=== PATIENT | male | born 1945 | race Caucasian/White ===

== ENCOUNTER → 2019-01-21 | Outpatient (CLI) | payer MEDICARE ==
--- NOTE | 2019-01-21 12:35 | MR ---
EXAMINATION TYPE: MR knee LT wo con DATE OF EXAM: 01/21/2019 COMPARISON: Plain films 12/31/2018 HISTORY: Left knee pain TECHNIQUE: Multiplanar, multisequence imaging of the left knee is performed without IV contrast. FINDINGS: MEDIAL MENISCUS: Is oblique signal within the posterior horn medial meniscus communicating with the i nferior articular surface compatible with an oblique tear. Anterior horn medial meniscus appears inta ct. There is mild increased signal adjacent to the posterior horn medial meniscus along the tibial pl ateau compatible lesion. LATERAL MENISCUS: Anterior and posterior horns are intact without tear. CRUCIATE LIGAMENTS: The anterior and posterior cruciate ligaments are intact and unremarkable. COLLATERAL LIGAMENTS: The medial collateral ligament and lateral collateral ligament complex are inta ct. Medial collateral ligament has some fluid surrounding with normal low signal within. Mild strain could be considered. EXTENSOR MECHANISM: Visualized quadriceps and patellar tendons are intact. EFFUSION: Small joint fluid is present POPLITEAL CYST: Very tiny 0.6 cm popliteal cyst may be present. TRICOMPARTMENT SPACES: There is narrowing of the medial compartment joint space. Lateral compartment joint space has milder narrowing. Patellofemoral space is normal. CARTILAGE: There is thinning of the medial compartment articular cartilage. Mild thinning of the demario cular cartilage along the lateral tibial plateau is present. Articular cartilage otherwise appears in tact BONE MARROW SIGNAL: With the medial tibial plateau, no abnormal signal within the osseous structures is evident. Small contusion of the corner of the medial tibial plateau adjacent to the posterior horn medial meniscus is evident. Some displacement of the meniscus medially may be present. OTHER: No additional significant abnormality is appreciated. IMPRESSION: 1. Oblique tear posterior horn medial meniscus. 2. There may be some subluxation of the posterior horn medial residual meniscus out of the joint spac e. 3. Contusion medial posterior tibial plateau. 4. Osteoarthritic degenerative change medial compartment. Milder changes are within the lateral felicia rtment. 5. Tiny popliteal cyst. 6. Minimal joint effusion. 7. Strain of the medial collateral ligament.
== END | disposition home or self-care (01) ==
LOC: RADMRIMAIN 10:15
PROVIDERS: ATTEND Orthopaedic Surgery
DX: S83.242A Other tear of medial meniscus, current injury, left knee, initial encounter (principal); M17.12 Unilateral primary osteoarthritis, left knee; M71.22 Synovial cyst of popliteal space [Baker], left knee; S76.812A Strain of other specified muscles, fascia and tendons at thigh level, left thigh, initial encounter

== ENCOUNTER 2023-07-24 19:49 | Inpatient (IN) | payer MEDICARE ==
[2023-07-24] MEDS ORDERED: SODIUM CHLORIDE 0.9% 500 ML 500 ML IV ONE ×2 (20:09→21:43)
[2023-07-24 20:13] VITALS: RESP 18
--- NOTE | 2023-07-24 20:16 | ED ---
General Adult HPI - General Chief complaint: Fall Stated complaint: Fall Time Seen by Provider: 07/24/23 20:04 Source: patient, EMS, RN notes reviewed, old records reviewed Mode of arrival: EMS Limitations: altered mental status - History of Present Illness Initial comments: Patient brought in by EMS after found down in his house. Per EMS family was at tempting to reach him since 2:00 yesterday and was unable. He was found on the floor next to his nightstand. Patient states that he believes it is Saturday. He recalls getting up to go to the bathroom and returning back to the bed and got dizzy and fell. He is complaining of neck tightness no other discomfort or pain. Denies any medical history. -: days(s) (1) Location: head, neck Radiation: non-radiation Quality: other ("tight" neck) Consistency: constant Improves with: immobilization Worsens with: movement Associated Symptoms: other (confusion) Treatments Prior to Arrival: none - Related Data Previous Rx's Medication Instructions Recorded Aspirin 81 mg PO DAILY 30 Days #30 tab 07/26/23 Allergies Allergy/AdvReac Type Severity Reaction Status Date / Time No Known Allergies Allergy Verified 07/25/23 07:59 Review of Systems ROS Statement: Those systems with pertinent positive or pertinent negative responses have been documented in the HPI. ROS Other: All systems not noted in ROS Statement are negative. Past Medical History Additional Past Medical History / Comment(s): cataracts History of Any Multi-Drug Resistant Organisms: None Reported Additional Past Surgical History / Comment(s): caracts Past Psychological History: No Psychological Hx Reported Smoking Status: Current every day smoker Past Alcohol Use History: Occasional Past Drug Use History: Marijuana General Exam Limitations: altered mental status General appearance: alert, in no apparent distress Head exam: Present: atraumatic, normocephalic, other (petechie to face diffuse) Eye exam: Present: normal appearance, PERRL, EOMI. Absent: scleral icterus, conjunctival injection, nystagmus, periorbital swelling, periorbital tenderness ENT exam: Present: mucous membranes dry Neck exam: Present: tenderness. Absent: meningismus, lymphadenopathy, thyromegaly Respiratory exam: Present: normal lung sounds bilaterally. Absent: respiratory distress, accessory muscle use Cardiovascular Exam: Present: regular rate GI/Abdominal exam: Present: soft. Absent: distended, tenderness, guarding, rebound, rigid Extremities exam: Present: normal inspection, full ROM, normal capillary refill. Absent: tenderness, pedal edema, joint swelling, calf tenderness Back exam: Present: normal inspection, full ROM. Absent: tenderness, CVA tenderness (R), CVA tenderness (L), paraspinal tenderness, vertebral tenderness, rash noted Neurological exam: Present: alert (alert to person only ), CN II-XII intact Psychiatric exam: Present: normal affect, normal mood Skin exam: Present: warm, dry, normal color, petechiae (diffuse face), abrasion (left shoulder, right forearm). Absent: cyanosis, diaphoretic, pallor Course Vital Signs 07/24/23 07/24/23 07/25/23 19:54 21:51 00:44 Temperature 100.9 F H 98.9 F Pulse Rate 80 78 75 Pulse Rate [ Pulse Oximetery ] Respiratory 18 18 18 Rate Blood Pressure 144/77 130/57 119/65 Blood Pressure [Right Arm] O2 Sat by Pulse 95 96 95 Oximetry 07/25/23 07/25/23 07/25/23 06:19 09:38 17:44 Temperature 98.1 F 98.1 F Pulse Rate 70 71 Pulse Rate [ 65 Pulse Oximetery ] Respiratory 18 18 18 Rate Blood Pressure 143/76 134/63 Blood Pressure 147/67 [Right Arm] O2 Sat by Pulse 97 96 97 Oximetry 07/25/23 17:45 Temperature Pulse Rate Pulse Rate [ 65 Pulse Oximetery ] Respiratory 18 Rate Blood Pressure Blood Pressure [Right Arm] O2 Sat by Pulse Oximetry EKG Findings - EKG Results: EKG: sinus rhythm (EKG shows sinus rhythm with a ventricular rate of 80, SC interval 0.171, QRS 0.154, QTC 0.441, right bundle branch block, no old EKG to compare.) Medical Decision Making - Medical Decision Making Was pt. sent in by a medical professional or institution (, PA, BOILER SHOP SUPERVISOR, urgent care, hospital, or senior care...) When possible be specific @ -[No] Did you speak to anyone other than the patient for history (EMS, parent, family, police, friend...)? What history was obtained from this source @ -[No] Did you review nursing and triage notes (agree or disagree)? Why? @ -[I reviewed and agree with nursing and triage notes] Were old charts reviewed (outside hosp., previous admission, EMS record, old EKG, old radiological studies, urgent care reports/EKG's, senior care records)? Report findings @ -[No old charts were reviewed] Differential Diagnosis (chest pain, altered mental status, abdominal pain women, abdominal pain men, vaginal bleeding, weakness, fever, dyspnea, syncope, headache, dizziness, GI bleed, back pain, seizure, CVA, palpatations, mental health, musculoskeletal)? @ -Differential Altered Mental Status: Hypoglycemia, DKA, hypercapnia, ETOH, overdose, CO poisoning, trauma, myxedema coma, HTN encephalopathy, infection, encephalitis, psychosis, intercranial hemorrhage, hepatic encephalopathy, meningitis, CVA, this is not meant to be an all-inclusive list EKG interpreted by me (3pts min.). @ -yes EKG shows sinus rhythm with a ventricular rate of 80, SC interval 0.171, QRS 0.154, QTC 0.441, right bundle branch block, no old EKG to compare. X-rays interpreted by me (1pt min.). @ -Yes chest x-ray interpreted by me shows no evidence of consolidation, trachea midline, heart silhouette within normal size. CT interpreted by me (1pt min.). @ -Yes CT brain and C-spine interpreted by me shows no evidence of intracranial bleed or mass or midline shift. C-spine shows no evidence of acute fracture. U/S interpreted by me (1pt. min.). @ -[None done] What testing was considered but not performed or refused? (CT, X-rays, U/S, labs)? Why? @ -[None] What meds were considered but not given or refused? Why? @ -[None] Did you discuss the management of the patient with other professionals (professionals i.e. , PA, BOILER SHOP SUPERVISOR, lab, RT, psych nurse, director social, community health outreach worker, teacher, probation officer, medical case worker)? Give summary @ -[No] Was smoking cessation discussed for >3mins.? @ -[No] Was critical care preformed (if so, how long)? @ -[No] Were there social determinants of health that impacted care today? How? (Homelessness, low income, unemployed, alcoholism, drug addiction, transportation, low edu. Level, literacy, decrease access to med. care, skilled nursing, rehab)? @ -[No] Was there de-escalation of care discussed even if they declined (Discuss DNR or withdrawal of care, Hospice)? DNR status @ -[No] What co-morbidities impacted this encounter? (DM, HTN, Smoking, COPD, CAD, Cancer, CVA, ARF, Chemo, Hep., AIDS, mental health diagnosis, sleep apnea, morbid obesity)? @ -[None] Was patient admitted / discharged? Hospital course, mention meds given and route, prescriptions, significant lab abnormalities, going to OR and other pertinent info. @ -Admitted Patient brought in by EMS after found down in his house. Per EMS family was attempting to reach him since 2:00 yesterday and was unable. He was found on the floor next to his nightstand. Patient states that he believes it is Saturday. He recalls getting up to go to the bathroom and returning back to the bed and got dizzy and falling. He is complaining of neck tightness no other discomfort or pain. Denies any medical history. Radiologist impression CT head no acute intracranial CT abnormality. Mild generalized brain atrophy and chronic microvascular ischemic changes. No evidence of cervical spine fracture or traumatic malalignment. Multilevel cervical spondylosis with mild to moderate canal and neural foraminal stenosis C4 - C5, C6 - C7 Radiologist impression chest x-ray mild cardiomegaly. No acute cardiopulmonary abnormality. Labs show mild leukocytosis, lactic acid of 2.7, CK of 1245, elevated troponin 0.178 coronavirus and urinalysis pending, patient will be placed in observation for altered mental status case signed out to Dr. Patel who will review urinalysis and coronavirus results. Undiagnosed new problem with uncertain prognosis? @ -[No] Drug Therapy requiring intensive monitoring for toxicity (Heparin, Nitro, Insulin, Cardizem)? @ -[No] Were any procedures done? @ -[No] Diagnosis/symptom? @ -Altered mental status, rhabdomyolosis, fall Acute, or Chronic, or Acute on Chronic? @ -acute Uncomplicated (without systemic symptoms) or Complicated (systemic symptoms)? @ -complicated Side effects of treatment? @ -[No] Exacerbation, Progression, or Severe Exacerbation? @ -[No] Poses a threat to life or bodily function? How? (Chest pain, [place], [place], pneumonia, PE, COPD, DKA, ARF, appy, cholecystitis, CVA, Diverticulitis, Homicidal, Suicidal, threat to staff... and all critical care pts) @ -yes rhabdomyolysis could result in kidney failure, electrolyte abnormalities or DIC - Lab Data Result diagrams: 07/26/23 07:44 07/26/23 07:44 Lab Results 07/24/23 07/24/23 07/24/23 Range/Units 20:23 20:23 20:23 WBC 13.5 H (3.8-10.6) k/uL RBC 4.53 (4.30-5.90) m/uL Hgb 15.1 (13.0-17.5) gm/dL Hct 45.2 (39.0-53.0) % MCV 99.8 (80.0-100.0) fL MCH 33.4 (25.0-35.0) pg MCHC 33.4 (31.0-37.0) g/dL RDW 13.5 (11.5-15.5) % Plt Count 166 (150-450) k/uL MPV 8.3 Neutrophils % 91 % Lymphocytes % 5 % Monocytes % 3 % Eosinophils % 0 % Basophils % 1 % Neutrophils # 12.2 H (1.3-7.7) k/uL Lymphocytes # 0.7 L (1.0-4.8) k/uL Monocytes # 0.5 (0-1.0) k/uL Eosinophils # 0.0 (0-0.7) k/uL Basophils # 0.1 (0-0.2) k/uL PT 11.1 (10.0-12.5) sec INR 1.0 (<1.2) APTT 21.7 L (22.0-30.0) sec Sodium (137-145) mmol/L Potassium (3.5-5.1) mmol/L Chloride (98-107) mmol/L Carbon Dioxide (22-30) mmol/L Anion Gap mmol/L BUN (9-20) mg/dL Creatinine (0.66-1.25) mg/dL Est GFR (CKD-EPI)AfAm (>60 ml/min/1.73 sqM) Est GFR (CKD-EPI)NonAf (>60 ml/min/1.73 sqM) Glucose (74-99) mg/dL POC Glucose (mg/dL) (70-110) mg/dL POC Glu Travel Guide ID Lactic Ac Sepsis Rflx Plasma Lactic Acid Damaso (0.7-2.0) mmol/L Calcium (8.4-10.2) mg/dL Magnesium (1.6-2.3) mg/dL Total Bilirubin (0.2-1.3) mg/dL AST (17-59) U/L ALT (4-49) U/L Alkaline Phosphatase (38-126) U/L Creatine Kinase (55-170) U/L CK-MB (CK-2) (0.0-3.4) ng/mL Troponin I (0.000-0.034) ng/mL Total Protein (6.3-8.2) g/dL Albumin (3.5-5.0) g/dL Urine Color Yellow Urine Appearance Cloudy (Clear) Urine pH 5.0 (5.0-8.0) Ur Specific [place] 1.015 (1.001-1.035) Urine Protein Trace H (Negative) Urine Glucose (UA) Negative (Negative) Urine Ketones 3+ (Negative) Urine Blood Moderate (Negative) Urine Nitrite Negative (Negative) Urine Bilirubin Negative (Negative) Urine Urobilinogen <2.0 (<2.0) mg/dL Ur Leukocyte Esterase Negative (Negative) Urine RBC 3 (0-5) /hpf Amorphous Sediment Rare H (None) /hpf Hyaline Casts 5 H (0-2) /lpf Urine Opiates Screen Not Detected (NotDetected) Ur Oxycodone Screen Not Detected (NotDetected) Urine Methadone Screen Not Detected (NotDetected) Ur Propoxyphene Screen Not Detected (NotDetected) Ur Barbiturates Screen Not Detected (NotDetected) U Tricyclic Antidepress Not Detected (NotDetected) Ur Phencyclidine Scrn Not Detected (NotDetected) Ur Amphetamines Screen Not Detected (NotDetected) U Methamphetamines Scrn Not Detected (NotDetected) U Benzodiazepines Scrn Not Detected (NotDetected) Urine Cocaine Screen Not Detected (NotDetected) U Marijuana (THC) Screen Not Detected (NotDetected) Influenza Type A (PCR) (Not Detectd) Influenza Type B (PCR) (Not Detectd) RSV (PCR) (Not Detectd) SARS-CoV-2 (PCR) (Not Detectd) 07/24/23 07/24/23 07/24/23 Range/Units 20:23 20:23 20:23 WBC (3.8-10.6) k/uL RBC (4.30-5.90) m/uL Hgb (13.0-17.5) gm/dL Hct (39.0-53.0) % MCV (80.0-100.0) fL MCH (25.0-35.0) pg MCHC (31.0-37.0) g/dL RDW (11.5-15.5) % Plt Count (150-450) k/uL MPV Neutrophils % % Lymphocytes % % Monocytes % % Eosinophils % % Basophils % % Neutrophils # (1.3-7.7) k/uL Lymphocytes # (1.0-4.8) k/uL Monocytes # (0-1.0) k/uL Eosinophils # (0-0.7) k/uL Basophils # (0-0.2) k/uL PT (10.0-12.5) sec INR (<1.2) APTT (22.0-30.0) sec Sodium 142 (137-145) mmol/L Potassium 4.0 (3.5-5.1) mmol/L Chloride 110 H (98-107) mmol/L Carbon Dioxide 16 L (22-30) mmol/L Anion Gap 16 mmol/L BUN 18 (9-20) mg/dL Creatinine 0.96 (0.66-1.25) mg/dL Est GFR (CKD-EPI)AfAm 88 (>60 ml/min/1.73 sqM) Est GFR (CKD-EPI)NonAf 77 (>60 ml/min/1.73 sqM) Glucose 128 H (74-99) mg/dL POC Glucose (mg/dL) (70-110) mg/dL POC Glu Travel Guide ID Lactic Ac Sepsis Rflx Plasma Lactic Acid Damaso 2.7 H* (0.7-2.0) mmol/L Calcium 9.4 (8.4-10.2) mg/dL Magnesium (1.6-2.3) mg/dL Total Bilirubin 0.7 (0.2-1.3) mg/dL AST 52 (17-59) U/L ALT 43 (4-49) U/L Alkaline Phosphatase 54 (38-126) U/L Creatine Kinase 1245 H* (55-170) U/L CK-MB (CK-2) 17.4 H (0.0-3.4) ng/mL Troponin I 0.178 H* (0.000-0.034) ng/mL Total Protein 8.2 (6.3-8.2) g/dL Albumin 4.8 (3.5-5.0) g/dL Urine Color Urine Appearance (Clear) Urine pH (5.0-8.0) Ur Specific [place] (1.001-1.035) Urine Protein (Negative) Urine Glucose (UA) (Negative) Urine Ketones (Negative) Urine Blood (Negative) Urine Nitrite (Negative) Urine Bilirubin (Negative) Urine Urobilinogen (<2.0) mg/dL Ur Leukocyte Esterase (Negative) Urine RBC (0-5) /hpf Amorphous Sediment (None) /hpf Hyaline Casts (0-2) /lpf Urine Opiates Screen (NotDetected) Ur Oxycodone Screen (NotDetected) Urine Methadone Screen (NotDetected) Ur Propoxyphene Screen (NotDetected) Ur Barbiturates Screen (NotDetected) U Tricyclic Antidepress (NotDetected) Ur Phencyclidine Scrn (NotDetected) Ur Amphetamines Screen (NotDetected) U Methamphetamines Scrn (NotDetected) U Benzodiazepines Scrn (NotDetected) Urine Cocaine Screen (NotDetected) U Marijuana (THC) Screen (NotDetected) Influenza Type A (PCR) (Not Detectd) Influenza Type B (PCR) (Not Detectd) RSV (PCR) (Not Detectd) SARS-CoV-2 (PCR) (Not Detectd) 07/24/23 07/24/23 07/24/23 Range/Units 20:29 21:44 22:56 WBC (3.8-10.6) k/uL RBC (4.30-5.90) m/uL Hgb (13.0-17.5) gm/dL Hct (39.0-53.0) % MCV (80.0-100.0) fL MCH (25.0-35.0) pg MCHC (31.0-37.0) g/dL RDW (11.5-15.5) % Plt Count (150-450) k/uL MPV Neutrophils % % Lymphocytes % % Monocytes % % Eosinophils % % Basophils % % Neutrophils # (1.3-7.7) k/uL Lymphocytes # (1.0-4.8) k/uL Monocytes # (0-1.0) k/uL Eosinophils # (0-0.7) k/uL Basophils # (0-0.2) k/uL PT (10.0-12.5) sec INR (<1.2) APTT (22.0-30.0) sec Sodium (137-145) mmol/L Potassium (3.5-5.1) mmol/L Chloride (98-107) mmol/L Carbon Dioxide (22-30) mmol/L Anion Gap mmol/L BUN (9-20) mg/dL Creatinine (0.66-1.25) mg/dL Est GFR (CKD-EPI)AfAm (>60 ml/min/1.73 sqM) Est GFR (CKD-EPI)NonAf (>60 ml/min/1.73 sqM) Glucose (74-99) mg/dL POC Glucose (mg/dL) 135 H (70-110) mg/dL POC Glu Travel Guide ID Nickie Phillips Lactic Ac Sepsis Rflx Y Plasma Lactic Acid Damaso (0.7-2.0) mmol/L Calcium (8.4-10.2) mg/dL Magnesium (1.6-2.3) mg/dL Total Bilirubin (0.2-1.3) mg/dL AST (17-59) U/L ALT (4-49) U/L Alkaline Phosphatase (38-126) U/L Creatine Kinase (55-170) U/L CK-MB (CK-2) (0.0-3.4) ng/mL Troponin I (0.000-0.034) ng/mL Total Protein (6.3-8.2) g/dL Albumin (3.5-5.0) g/dL Urine Color Urine Appearance (Clear) Urine pH (5.0-8.0) Ur Specific [place] (1.001-1.035) Urine Protein (Negative) Urine Glucose (UA) (Negative) Urine Ketones (Negative) Urine Blood (Negative) Urine Nitrite (Negative) Urine Bilirubin (Negative) Urine Urobilinogen (<2.0) mg/dL Ur Leukocyte Esterase (Negative) Urine RBC (0-5) /hpf Amorphous Sediment (None) /hpf Hyaline Casts (0-2) /lpf Urine Opiates Screen (NotDetected) Ur Oxycodone Screen (NotDetected) Urine Methadone Screen (NotDetected) Ur Propoxyphene Screen (NotDetected) Ur Barbiturates Screen (NotDetected) U Tricyclic Antidepress (NotDetected) Ur Phencyclidine Scrn (NotDetected) Ur Amphetamines Screen (NotDetected) U Methamphetamines Scrn (NotDetected) U Benzodiazepines Scrn (NotDetected) Urine Cocaine Screen (NotDetected) U Marijuana (THC) Screen (NotDetected) Influenza Type A (PCR) Not Detected (Not Detectd) Influenza Type B (PCR) Not Detected (Not Detectd) RSV (PCR) Not Detected (Not Detectd) SARS-CoV-2 (PCR) Not Detected (Not Detectd) 07/24/23 Range/Units 23:10 WBC (3.8-10.6) k/uL RBC (4.30-5.90) m/uL Hgb (13.0-17.5) gm/dL Hct (39.0-53.0) % MCV (80.0-100.0) fL MCH (25.0-35.0) pg MCHC (31.0-37.0) g/dL RDW (11.5-15.5) % Plt Count (150-450) k/uL MPV Neutrophils % % Lymphocytes % % Monocytes % % Eosinophils % % Basophils % % Neutrophils # (1.3-7.7) k/uL Lymphocytes # (1.0-4.8) k/uL Monocytes # (0-1.0) k/uL Eosinophils # (0-0.7) k/uL Basophils # (0-0.2) k/uL PT (10.0-12.5) sec INR (<1.2) APTT (22.0-30.0) sec Sodium 141 (137-145) mmol/L Potassium 4.1 (3.5-5.1) mmol/L Chloride 112 H (98-107) mmol/L Carbon Dioxide 17 L (22-30) mmol/L Anion Gap 12 mmol/L BUN 17 (9-20) mg/dL Creatinine 0.89 (0.66-1.25) mg/dL Est GFR (CKD-EPI)AfAm >90 (>60 ml/min/1.73 sqM) Est GFR (CKD-EPI)NonAf 83 (>60 ml/min/1.73 sqM) Glucose 115 H (74-99) mg/dL POC Glucose (mg/dL) (70-110) mg/dL POC Glu Travel Guide ID Lactic Ac Sepsis Rflx Plasma Lactic Acid [place]as[place] (0.7-2.0) mmol/L Calcium 8.8 (8.4-10.2) mg/dL Magnesium 2.5 H (1.6-2.3) mg/dL Total Bilirubin (0.2-1.3) mg/dL AST (17-59) U/L ALT (4-49) U/L Alkaline Phosphatase (38-126) U/L Creatine Kinase 2243 H* (55-170) U/L CK-MB (CK-2) (0.0-3.4) ng/mL Troponin I (0.000-0.034) ng/mL Total Protein (6.3-8.2) g/dL Albumin (3.5-5.0) g/dL Urine Color Urine Appearance (Clear) Urine pH (5.0-8.0) Ur Specific [place] (1.001-1.035) Urine Protein (Negative) Urine Glucose (UA) (Negative) Urine Ketones (Negative) Urine Blood (Negative) Urine Nitrite (Negative) Urine Bilirubin (Negative) Urine Urobilinogen (<2.0) mg/dL Ur Leukocyte Esterase (Negative) Urine RBC (0-5) /hpf Amorphous Sediment (None) /hpf Hyaline Casts (0-2) /lpf Urine Opiates Screen (NotDetected) Ur Oxycodone Screen (NotDetected) Urine Methadone Screen (NotDetected) Ur Propoxyphene Screen (NotDetected) Ur Barbiturates Screen (NotDetected) U Tricyclic Antidepress (NotDetected) Ur Phencyclidine Scrn (NotDetected) Ur Amphetamines Screen (NotDetected) U Methamphetamines Scrn (NotDetected) U Benzodiazepines Scrn (NotDetected) Urine Cocaine Screen (NotDetected) U Marijuana (THC) Screen (NotDetected) Influenza Type A (PCR) (Not Detectd) Influenza Type B (PCR) (Not Detectd) RSV (PCR) (Not Detectd) SARS-CoV-2 (PCR) (Not Detectd) Disposition Clinical Impression: Fall, Rhabdomyolysis, Altered mental status Disposition: ADMITTED IP TO THIS HOSP Condition: Stable Decision Date: 07/24/23 Decision Time: 23:04
[2023-07-24 20:30] LABS: Glucose,Whole Blood 135 mg/dL (70-110)
[2023-07-24 20:59] LABS: Basophils # (A) 0.1 k/uL (0-0.2); Basophils % (A) 1 %; Eosinophils % (A) 0 %; HCT 45.2 % (39.0-53.0); HGB 15.1 gm/dL (13.0-17.5); Lymphocytes # (A) 0.7 k/uL (1.0-4.8); Lymphocytes % (A) 5 %; MCH 33.4 pg (25.0-35.0); MCHC 33.4 g/dL (31.0-37.0); MCV 99.8 fL (80.0-100.0); Mean Platelet Volume 8.3; Monocytes # (A) 0.5 k/uL (0-1.0); Monocytes % (A) 3 %; Neutrophils # (A) 12.2 k/uL (1.3-7.7); Neutrophils % (A) 91 %; Platelet Count 166 k/uL (150-450); RBC 4.53 m/uL (4.30-5.90); RDW 13.5 % (11.5-15.5); WBC 13.5 k/uL (3.8-10.6)
[2023-07-24 21:26] LABS: Creatine Kinase MB 17.4 ng/mL (0.0-3.4)
[2023-07-24 21:42] LABS: Prothrombin Time 11.1 sec (10.0-12.5)
[2023-07-24] MEDS ORDERED: ACETAMINOPHEN TAB 325 MG TAB PO STA (21:42)
[2023-07-24 21:45] LABS: Troponin I 0.178 ng/mL (0.000-0.034)
--- NOTE | 2023-07-24 21:53 | CT ---
EXAMINATION TYPE: CT brain cspine wo con CT DLP: 1451.7 mGycm, Automated exposure control for dose reduction was used. DATE OF EXAM: 07/24/2023 8:48 PM COMPARISON: None. CLINICAL INDICATION:Male, 77 years old with history of fall altered mental; pain after fall and AMS TECHNIQUE: Brain: Multiple axial CT images of the brain were obtained without IV contrast. Cspine: Axial CT images from the skull base to the inferior aspect of T2 we obtained without intraven ous contrast. Coronal and sagittal reformatted images were also reviewed. FINDINGS: Brain: Extra-axial spaces: No abnormal extra-axial fluid collections. Ventricular system: Appear dilated in proportion to the degree of cerebral atrophy. Cerebral parenchyma: No increased attenuation to suggest acute intraparenchymal hemorrhage. The gra y-white matter interface appears maintained. Mild generalized brain atrophy. Scattered hypoattenuat ing areas are seen within the cerebral white matter, nonspecific but most often seen with chronic juan rovascular ischemic changes; mild in degree. Cerebellum: No acute abnormality. Mass effect: No evidence of mass effect or midline shift. Intracranial vasculature: Atherosclerotic calcifications of the larger arteries near the skull base. Soft tissues: No significant acute abnormality. Visualized orbits: Orbital contents appear grossly intact. Calvarium/osseous structures: No evidence of calvarial fracture. Paranasal sinuses and mastoid air cells: Clear MRI is more sensitive for detecting acute processes such as infarct, and may be considered if clinica lly warranted. Cervical spine: Fracture: None seen. Osseous structures, spinal canal/neural foramina: Mild multilevel degenerative disc disease and facet arthrosis. There is mild to moderate canal and neural foraminal stenosis C4-C5, C5-C6, C6-C7 as a re sult. Vertebral alignment: No traumatic malalignment. Neck soft tissues: No acute finding.. Calcifications noted involving the cervical carotid arteries, a nd along aortic arch Other: Lung apices show no acute infiltrate or pneumothorax. IMPRESSION: CT head: 1. No acute intracranial CT abnormality. 2. Mild generalized brain atrophy and chronic microvascular ischemic changes. CT cervical spine: 1. No evidence of cervical spine fracture or traumatic malalignment. 2. Multilevel cervical spondylosis with mild to moderate canal and neural foraminal stenoses C4-C5 th rough C6-C7.
[2023-07-24 21:55] LABS: ALT 43 U/L (4-49); AST 52 U/L (17-59); African American GFR (CKD) 88 (>60 ml/min/1.73 sqM); Albumin 4.8 g/dL (3.5-5.0); Alkaline Phosphatase 54 U/L (38-126); Anion Gap 16 mmol/L; Blood Urea Nitrogen 18 mg/dL (9-20); Calcium 9.4 mg/dL (8.4-10.2); Carbon Dioxide 16 mmol/L (22-30); Chloride 110 mmol/L (98-107); Glucose 128 mg/dL (74-99); Non-African American GFR(CKD) 77 (>60 ml/min/1.73 sqM); Sodium 142 mmol/L (137-145); Total Bilirubin 0.7 mg/dL (0.2-1.3); Total Protein 8.2 g/dL (6.3-8.2)
[2023-07-24 22:08] LABS: Partial Thromboplastin Time 21.7 sec (22.0-30.0)
--- NOTE | 2023-07-24 22:16 | XR ---
EXAMINATION TYPE: XR chest 2V DATE OF EXAM: 07/24/2023 8:48 PM CLINICAL INDICATION:Male, 77 years old with history of altered mental status; [facility] COMPARISON: None TECHNIQUE: XR chest 2V. Frontal PA and lateral views of the chest. FINDINGS: Lines/Tubes: None. Heart/mediastinum: Cardiomediastinal silhouette is well defined. Heart appears mildly enlarged. Med iastinum appears normal. Pulmonary vascularity: Not increased, Lungs/Pleura: Scattered chronic senescent changes. Mildly coarsened interstitial lung markings, likel y chronic changes. There is no evidence of pleural effusion, focal consolidation, or pneumothorax. Musculoskeletal: No acute osseous abnormality demonstrated in the limits of the exam. Mild/moderate degenerative changes of the spine and shoulders. Other findings: None. IMPRESSION: Mild cardiomegaly. No acute cardiopulmonary abnormality.
[2023-07-24] MEDS ORDERED: ACETAMINOPHEN TAB 325 MG TAB PO PRN (22:59)
[2023-07-24] MEDS ORDERED: NALOXONE 0.4 MG/ML 1 ML VIAL IV PRN (22:59)
[2023-07-24 23:45] LABS: African American GFR (CKD) >90 (>60 ml/min/1.73 sqM); Anion Gap 12 mmol/L; Blood Urea Nitrogen 17 mg/dL (9-20); Calcium 8.8 mg/dL (8.4-10.2); Carbon Dioxide 17 mmol/L (22-30); Chloride 112 mmol/L (98-107); Glucose 115 mg/dL (74-99); Magnesium 2.5 mg/dL (1.6-2.3); Non-African American GFR(CKD) 83 (>60 ml/min/1.73 sqM); Potassium 4.1 mmol/L (3.5-5.1); Sodium 141 mmol/L (137-145)
[2023-07-24 23:50] LABS: Creatine Kinase 1245 U/L (55-170)
[2023-07-24 23:58] LABS: Creatine Kinase 2243 U/L (55-170)
[2023-07-25 00:03] LABS: Appearance,Urine Cloudy (Clear); Color,Urine Yellow; Glucose,Urine (UA) Negative (Negative); Protein,Urine Trace (Negative); Specific Gravity,Urine 1.015 (1.001-1.035)
[2023-07-25 00:04] LABS: Bilirubin,Urine Negative (Negative); Blood,Urine Moderate (Negative); Ketones,Urine 3+ (Negative); Leukocyte Esterase,Urine Negative (Negative); Nitrite,Urine Negative (Negative); Urobilinogen,Urine <2.0 mg/dL (<2.0)
[2023-07-25 00:08] LABS: Amorphous Sediment,Urine Rare /hpf; Hyaline Casts,Urine 5 /lpf (0-2); RBC,Urine 3 /hpf (0-5)
[2023-07-25 00:11] LABS: Amphetamine Screen,Urine Not Detected (NotDetected); Barbiturate Screen,Urine Not Detected (NotDetected); Benzodiazepines Screen,Urine Not Detected (NotDetected); Cocaine Screen,Urine Not Detected (NotDetected); Methadone Screen, Urine Not Detected (NotDetected); Opiate Screen,Urine Not Detected (NotDetected); Oxycodone Screen, Urine Not Detected (NotDetected); Phencyclidine Screen,Urine Not Detected (NotDetected); Tricyclic Antidepressant,Urine Not Detected (NotDetected); Urn Cannabinoid Scrn Not Detected (NotDetected)
[2023-07-25] MEDS: SODIUM CHLORIDE 0.9% 1,000 ML IV SCH ×4 (00:43→21:19)
[2023-07-25] MEDS ORDERED: VANCOMYCIN IV PER PHARMACY 1 EACH MISC MISCELLANE PRN (00:59)
--- NOTE | 2023-07-25 01:03 | P.HPIM ---
History of Present Illness H&P Date: 07/25/23 Patient is a 77-year-old male with no known PMH who was brought into the emergency room by EMS after he was found on the ground and his home. The history obtained from the ED provider and from the chart as the patient was confused at the time of interview. The family had apparently not been able to reach the patient since 2 PM on 07/23 and went to check on him and found him on the ground next to his bed. The patient states that he fell earlier today but was able to get right back up. He denied any active complaints at the time of interview. Denied experiencing loss of consciousness or head trauma. Also denies chest discomfort, shortness of breath, fever, chills, cough, nausea, vomiting, abdominal pain, diarrhea. The patient does report occasional alcohol use drinking as much as 4-5 beers a few times a week. Denies any history of alcohol withdrawal or delirium tremens. No reports of facial asymmetry, impaired speech, or focal weakness. In the emergency room or head/cervical spine CT was unremarkable with a chest x- ray showing cardiomegaly but otherwise unremarkable. EKG showed sinus rhythm at 80 bpm with a right bundle branch block as reviewed by me. Laboratory evaluation revealed troponin of 0.178, creatine kinase 1245, lactic acid 2.7, CO2 16, WBC count 13.5, with urine toxicology and UA unremarkable. Respiratory panel was negative. Patient also had a T-max of 100.9F. ED documentation reviewed and case discussed with ED provider. Review of systems: Pertinent positives and negatives as discussed in HPI, a complete review of systems was performed and all other systems are negative. Physical examination: Vital signs reviewed General: non toxic, no distress, appears at stated age, overweight Derm: no unusual rashes/lesions, warm Head: atraumatic, normocephalic, symmetric Eyes: EOMI, no lid lag, anicteric sclera, pupils equal round reactive to light ENT: Nose and ears atraumatic Neck: No cervical lymphadenopathy, trachea midline, supple Mouth: no lip lesion, mucus membranes moist Cardiovascular: S1S2 reg, no murmur, positive dorsalis pedis pulse bilateral, no edema Lungs: CTA bilateral, no rhonchi, no rales, no accessory muscle use Abdominal: soft, nontender to palpation, no guarding Ext: muscle strength 5 out of 5 in all 4 extremities grossly, no gross muscle atrophy, no contractures, Neuro: CN II-XI grossly intact, no gross focal neuro deficits Psych: Alert, oriented to person and place, not fully oriented to time Assessment: Rhabdomyolysis, suspect due to prolonged immobilization and dehydration Lactic acidosis Elevated troponin, suspect type II HI SIRS, with no obvious infectious etiology noted Altered mental status, suspect metabolic encephalopathy Imaging: In the emergency room or head/cervical spine CT was unremarkable with a chest x- ray showing cardiomegaly but otherwise unremarkable. Data Review: Laboratory evaluation revealed troponin of 0.178, creatine kinase 1245, lactic acid 2.7, CO2 16, WBC count 13.5, with urine toxicology and UA unremarkable. Respiratory panel was negative. Patient also had a T-max of 100.9F. Plan: Continue with IV fluids normal saline 1 50 mL per hour Initiate broad-spectrum empiric antibiotic coverage with vancomycin and Zosyn pending blood cultures Monitor CK levels Monitor lactic acid levels for resolution Fall precautions PT consult Cardiac monitoring Trend troponin Cardiology consulted DVT prophylaxis: Lovenox Subq The patient is admitted with an anticipated less than 2 midnight stay for evaluation of rhabdomyolysis CODE STATUS: Full Code Discussed with: Patient Anticipated discharge place: Home Past Medical History Additional Past Medical History / Comment(s): cataracts History of Any Multi-Drug Resistant Organisms: None Reported Additional Past Surgical History / Comment(s): caracts Past Psychological History: No Psychological Hx Reported Smoking Status: Current every day smoker Past Alcohol Use History: Occasional Past Drug Use History: Marijuana Medications and Allergies Allergies Allergy/AdvReac Type Severity Reaction Status Date / Time No Known Allergies Allergy Verified 07/24/23 20:11 Physical Exam Vitals: Vital Signs Temp Pulse Resp BP Pulse Ox 07/25/23 00:44 75 18 119/65 95 07/24/23 21:51 98.9 F 78 18 130/57 96 07/24/23 19:54 100.9 F H 80 18 144/77 95 Intake and Output 07/24/23 07/24/23 07/25/23 14:59 22:59 06:59 Other: Weight 90.718 kg Results CBC & Chem 7: 07/24/23 20:23 07/24/23 23:10 Labs: Abnormal Lab Results - Last 24 Hours (Table) 07/24/23 07/24/23 07/24/23 Range/Units 20:23 20: 20: WBC 13.5 H (3.8-10.6) k/uL Neutrophils # 12.2 H (1.3-7.7) k/uL Lymphocytes # 0.7 L (1.0-4.8) k/uL APTT 21.7 L (22.0-30.0) sec Chloride (98-107) mmol/L Carbon Dioxide (22-30) mmol/L Glucose (74-99) mg/dL POC Glucose (mg/dL) (70-110) mg/dL Plasma Lactic Acid Damaso (0.7-2.0) mmol/L Magnesium (1.6-2.3) mg/dL Creatine Kinase (55-170) U/L CK-MB (CK-2) (0.0-3.4) ng/mL Troponin I (0.000-0.034) ng/mL Urine Protein Trace H (Negative) Amorphous Sediment Rare H (None) /hpf Hyaline Casts 5 H (0-2) /lpf 07/24/23 07/24/23 07/24/23 Range/Units :23 20: 20:23 WBC (3.8-10.6) k/uL Neutrophils # (1.3-7.7) k/uL Lymphocytes # (1.0-4.8) k/uL APTT (22.0-30.0) sec Chloride 110 H (98-107) mmol/L Carbon Dioxide 16 L (22-30) mmol/L Glucose 128 H (74-99) mg/dL POC Glucose (mg/dL) (70-110) mg/dL Plasma Lactic Acid Damaso 2.7 H* (0.7-2.0) mmol/L Magnesium (1.6-2.3) mg/dL Creatine Kinase 1245 H* (55-170) U/L CK-MB (CK-2) 17.4 H (0.0-3.4) ng/mL Troponin I 0.178 H* (0.000-0.034) ng/mL Urine Protein (Negative) Amorphous Sediment (None) /hpf Hyaline Casts (0-2) /lpf 07/24/23 07/24/23 Range/Units 20:29 23:10 WBC (3.8-10.6) k/uL Neutrophils # (1.3-7.7) k/uL Lymphocytes # (1.0-4.8) k/uL APTT (22.0-30.0) sec Chloride 112 H (98-107) mmol/L Carbon Dioxide 17 L (22-30) mmol/L Glucose 115 H (74-99) mg/dL POC Glucose (mg/dL) 135 H (70-110) mg/dL Plasma Lactic Acid Damaso (0.7-2.0) mmol/L Magnesium 2.5 H (1.6-2.3) mg/dL Creatine Kinase 2243 H* (55-170) U/L CK-MB (CK-2) (0.0-3.4) ng/mL Troponin I (0.000-0.034) ng/mL Urine Protein (Negative) Amorphous Sediment (None) /hpf Hyaline Casts (0-2) /lpf
[2023-07-25] MEDS: CEFEPIME 2 GM in SODIUM CHLORIDE 0.9% 100 ML IVPB SCH ×3 (01:45→18:07)
[2023-07-25] MEDS ORDERED: VANCOMYCIN 1,750 MG in SODIUM CHLORIDE 0.9% 500 ML 500 ML IVPB ONE (02:00)
[2023-07-25] MEDS ORDERED: ASPIRIN 81 MG PO STA (09:22)
[2023-07-25] MEDS: ENOXAPARIN 40 MG/0.4 ML SYRINGE SQ SCH (09:22)
[2023-07-25] MEDS ORDERED: ASPIRIN 81 MG PO SCH (09:30)
--- NOTE | 2023-07-25 10:04 | P.CRDCN ---
History of Present Illness Consult date: 07/25/23 Reason for Consult (text): elevated trops History of present illness: History of present illness: This is a 77-year-old male with no previous medical history does not follow with PCP. We have been asked to evaluate the patient for elevated troponins. Patient presented to the hospital exam EMS after he was found on the floor. Patient was last seen on Saturday evening around 9:30 or 10 PM and was found yesterday afternoon. Patient does not know if he lost consciousness but when his girlfriend arrived apparently she was able to wake him up. Patient denies having any chest pain, no wheezing no cough, no blood in his urine or stools. H e denies any stroke or seizure symptoms. He is normally very active and can do so without shortness of breath. He denies having any fevers. He is a smoker one pack per day. He also has regular daily caffeine intake. He drinks alcohol but not every day. Temperature max was 100.9. Blood pressure 134/63, heart rate in the 70s. Pulse ox 96% on room air. EKG sinus rhythm no acute findings Chest x-ray: Mild cardiomegaly. No acute process CT of the brain and cervical spine revealed no acute intracranial abnormality. Mild generalized brain atrophy and chronic ischemic changes. No evidence of cervical spine fracture or traumatic malalignment. Multilevel cervical spondylosis with mild to moderate canal and neural foraminal stenosis. WBC 13.5, hemoglobin 15.1, platelet count 166. INR 1. Sodium 141, potassium 4.1, chloride 112, CO2 17, creatinine 0.89. Lactic acid 2.7. Magnesium 2.5. CK 1245, 2243, 4328. Troponin 0.178, 0.179, 0.148. Urinalysis negative for infection. Urine drug screen negative. Influenza A, B, RSV, Covid 19 not detected. Home cardiac medications: Review Of Systems: At the time of my exam: CONSTITUTIONAL: Denies fever or chills. CARDIOVASCULAR: Denies chest pain, Denies shortness of breath, no orthopnea, PND or palpitations. RESPIRATORY: Denies cough. GASTROINTESTINAL: Denies abdominal pain, diarrhea, constipation, nausea or vomiting. MUSCULOSKELETAL: Denies myalgias. NEUROLOGIC: Denies numbness, tingling or weakness. ENDOCRINE: Denies fatigue, weight change, polydipsia or polyurina. GENITOURINARY: Denies burning, hematuria or urgency with micturation. HEMATOLOGIC: Denies history of anemia or bleeding. Physical examination: Gen: This is a 77-year-old male. He is resting and appears to be in no acute distress. VS: reviewed HEENT: Head is atraumatic, normocephalic. Pupils equal, round. Sclerae is anicteric. NECK: Supple. No JVD. LUNGS: Clear to auscultation. No wheezes or rhonchi. No intercostal retractions. HEART: Regular rate and rhythm. Systolic murmur. ABDOMEN: Soft No tenderness. EXTREMITIES: No pedal edema. No calf tenderness. NEUROLOGICAL: Patient is awake, alert and oriented x3. Assessment: Rhabdomyolysis Elevated troponin possibly type II MA secondary to syncopal episode but ischemic heart disease cannot be ruled out Syncopal episode of unclear etiology Tobacco use and dependence Plan: Repeat EKG in the morning Start patient on aspirin 81 mg daily Obtain lipid panel Obtain 2-D echocardiogram and Doppler study to assess cardiac structure and function Further recommendations to follow based upon clinical course Thank you kindly for this consultation. Nurse practitioner note has been reviewed, I agree with documented findings and plan of care. Patient was seen and examined. Past Medical History Additional Past Medical History / Comment(s): cataracts History of Any Multi-Drug Resistant Organisms: None Reported Additional Past Surgical History / Comment(s): caracts Past Psychological History: No Psychological Hx Reported Smoking Status: Current every day smoker Past Alcohol Use History: Occasional Past Drug Use History: Marijuana Medications and Allergies Home Medications Medication Instructions Recorded Confirmed Type No Known Home Medications 07/25/23 07/25/23 History Allergies Allergy/AdvReac Type Severity Reaction Status Date / Time No Known Allergies Allergy Verified 07/25/23 07:59 Physical Exam Vitals: Vital Signs Temp Pulse Resp BP Pulse Ox 07/25/23 06:19 70 18 143/76 97 07/25/23 00:44 75 18 119/65 95 07/24/23 21:51 98.9 F 78 18 130/57 96 07/24/23 19:54 100.9 F H 80 18 144/77 95 Intake and Output 07/24/23 07/25/23 07/25/23 22:59 06:59 14:59 Other: Weight 90.718 kg Results 07/24/23 20:23 07/24/23 23:10 Cardiac Enzymes 07/24/23 07/24/23 07/25/23 Range/Units 20:23 20: 00:35 AST 52 (17-59) U/L CK-MB (CK-2) 17.4 H (0.0-3.4) ng/mL Troponin I 0.178 H* 0.179 H* (0.000-0.034) ng/mL 07/25/23 Range/Units 02:54 AST (17-59) U/L CK-MB (CK-2) (0.0-3.4) ng/mL Troponin I 0.148 H* (0.000-0.034) ng/mL Coagulation 07/24/23 Range/Units 20: PT 11.1 (10.0-12.5) sec APTT 21.7 L (22.0-30.0) sec CBC 07/24/23 Range/Units 20: WBC 13.5 H (3.8-10.6) k/uL RBC 4.53 (4.30-5.90) m/uL Hgb 15.1 (13.0-17.5) gm/dL Hct 45.2 (39.0-53.0) % Plt Count 166 (150-450) k/uL Comprehensive Metabolic Panel 07/24/23 07/24/23 Range/Units 20:23 23:10 Sodium 142 141 (137-145) mmol/L Potassium 4.0 4.1 (3.5-5.1) mmol/L Chloride 110 H 112 H (98-107) mmol/L Carbon Dioxide 16 L 17 L (22-30) mmol/L BUN 18 17 (9-20) mg/dL Creatinine 0.96 0.89 (0.66-1.25) mg/dL Glucose 128 H 115 H (74-99) mg/dL Calcium 9.4 8.8 (8.4-10.2) mg/dL AST 52 (17-59) U/L ALT 43 (4-49) U/L Alkaline Phosphatase 54 (38-126) U/L Total Protein 8.2 (6.3-8.2) g/dL Albumin 4.8 (3.5-5.0) g/dL Current Medications Generic Name Dose Route Start Last Admin Trade Name Freq PRN Reason Stop Dose Admin Acetaminophen 650 mg 07/24/23 22:59 Acetaminophen Tab 325 Mg Tab PO Q6HR PRN Mild Pain or Fever > 100.5 Enoxaparin Sodium 40 mg 07/25/23 09:00 Enoxaparin 40 Mg/0.4 Ml Syringe SQ DAILY GRACIE Sodium Chloride 1,000 mls @ 150 mls/hr 07/24/23 21:45 07/25/23 06:58 Saline 0.9% IV 150 mls/hr .[id number] GRACEI Administration Cefepime HCl 2 gm/ Sodium 100 mls @ 25 mls/hr 07/25/23 01:00 07/25/23 01:45 Chloride IVPB 25 mls/hr Q8H GRACIE Administration Protocol Vancomycin HCl 1,750 mg/ 500 mls @ 167 mls/hr 07/25/23 16:00 Sodium Chloride IVPB Q12H GRACIE Naloxone HCl 0.2 mg 07/24/23 22:59 Naloxone 0.4 Mg/Ml 1 Ml Vial IV Q2M PRN Opioid Reversal Intake and Output 07/24/23 07/25/23 07/25/23 22:59 06:59 14:59 Other: Weight 90.718 kg 07/24/23 20:23 07/24/23 23:10
[2023-07-25] MEDS: VANCOMYCIN 1,750 MG in SODIUM CHLORIDE 0.9% 500 ML 500 ML IVPB SCH (17:03)
--- NOTE | 2023-07-25 17:58 | P.PN ---
Subjective Progress Note Date: 07/25/23 Hospital course: Patient is a very pleasant 77-year-old male with a past medical history of cataracts is post cataract surgery and nicotine dependence. He presented to the emergency department on 07/24/23 after reportedly being found down on the ground confused in his home. Per documentation in chart patient's last known normal was 07/23/23 around 2 PM. Patient underwent full evaluation in the emergency department. Labs upon arrival show blood pressure 144/77, heart rate 80, res piratory rate 18, temp 100.9F, SpO2 of 95% on room air. CT head and cervical spine was completed CT head was negative for acute intracranial abnormality showing mild generalized brain atrophy and chronic microvascular ischemic changes. CT cervical spine negative showing no evidence of cervical spine fracture or traumatic malalignment with multilevel cervical spondylosis with mild to moderate canal and neural foraminal stenosis C4 through C5 and C6 through C7. EKG completed showing normal sinus rhythm 80 bpm with a right bundle branch block. Chest x-ray revealing mild cardiomegaly negative for acute cardiopulmonary process. Labs completed and reviewed. CBC showing leukocytosis with WBC count of 13.5. Coagulation profile normal findings. BMP revealing hyperchloremia with chloride of 112 and hypocarbia with bicarb of 16 with elevated anion gap of 16. Renal function normal findings with BUN 17, creatinine 0.89, and GFR of 83. Blood glucose 115. Lactic acid elevated at 2.7. Creatinine kinase elevated at 2243. Liver profile normal findings. Troponin elevated at 0.178. Urinalysis showing trace protein and negative for blood or infection. Urine drug screen negative. Influenza A, influenza B, RSV, and Covid PCR all negative. Patient was provided with 1 L 0.9% normal saline bolus in the emergency department and started on IV maintenance and fluids with 0.9% normal saline at 150 mL per hour and admitted under services with consultation to cardiology for elevated troponins. Repeat creatinine kinase elevating to 4328 and troponins were trended overnight resulting in 0.178, 0.179, 0.148. Physical exam: Vital signs reviewed and stable. General: Nontoxic, no distress and appears stated age. Derm: Skin warm and dry, normal coloration for ethnicity. Head: Atraumatic, normocephalic and symmetric. Eyes: EOMs intact, no lid lag, and anicteric sclera Mouth: no lip lesions, mucus membranes moist Cardiovascular: regular rate and rhythm with normal S1S2, systolic murmur, positive posterior tibial pulses bilaterally, and cap refill < 2 seconds. Lungs: Respirations even, regular, and unlabored on room air. Lungs CTA bilaterally, no rhonchi, no rales, no wheezing, and no accessory muscle usage. Abdominal: soft, nontender to palpation, no guarding, no appreciable organomegaly Ext: ROM intact. No gross muscle atrophy, no edema, no contractures Neuro: Speech clear, face symmetrical and CN II-XII grossly intact with no noted focal neuro deficits Psych: Alert and oriented to person, place, time, and situation. Appropriate and pleasant affect. Assessment and Plan of Care: Rhabdomyolysis, suspect secondary to prolonged immobilization and dehydration High anion gap metabolic acidosis Elevated troponins, likely type II NSTEMI resulting from acute rhabdomyolysis Sepsis/SIRS of unclear etiology Nicotine dependence Lactic acidosis, resolved -Sepsis/SIRS as evidenced by temp 100.9F, WBC count of 13.5, and initial lactic acid of 2.7. -Blood cultures were obtained upon patient's admission to our services. -Patient was started on IV antibiotics with vancomycin 1750 mg every 12 hours and cefepime 2 g every 8 hours. Renal function to be monitored closely along with vancomycin trough to monitor for any signs of vancomycin associated renal toxicity. -Order placed for continuous Telemetry monitoring. -Continue IV fluid hydration with 0.9% normal saline in the 150 mL per hour for treatment of acute rhabdomyolysis. -Order placed for Aspirin 324 mg by mouth 1 dose followed by aspirin 81 mg daily. -Cardiology consulted, appreciate recommendations -Order placed for echocardiogram -Blood cultures obtained, will follow-up on results. -Nicotine patch 21 mg daily, recommend smoking cessation. -Continue fall precautions. Data and imaging reviewed: -Vital signs reviewed. Blood pressure 134/63, heart rate 71, respiratory rate 18, temp 98.1F, SpO2 of 96% on room air. -Morning labs completed and reviewed. Repeat creatinine kinase elevating to 4328 and troponins were trended overnight resulting in 0.178, 0.179, 0.148. Repeat lactic acid 1.3. CODE STATUS: Full code DVT prophylaxis: Lovenox Anticipated discharge date: Clinical course to determine Anticipated discharge place: Clinical course to determine Patient was seen independently by Nurse Pracitioner. This document was prepared using bookletmobile dictation software. Please allow for errors in auto painter, while rare they do occur. Isauro Craig [employer] rendered care for this patient independently, reviewed the findings and plan as documented in the note above. I did not physically speak with or examine the patient on this date. Objective - Vital Signs Vital signs: Vital Signs Temp 98.9 F 07/24/23 21:51 Pulse 70 07/25/23 06:19 Resp 18 07/25/23 06:19 BP 143/76 07/25/23 06:19 Pulse Ox 97 07/25/23 06:19 FiO2 Intake & Output 07/24/23 07/25/23 07/25/23 18:59 06:59 18:59 Weight 90.718 kg - Labs CBC & Chem 7: 07/26/23 07:44 07/26/23 07:44 Labs: Abnormal Lab Results - Last 24 Hours (Table) 07/24/23 07/24/23 07/24/23 Range/Units 20:23 20:23 20:23 WBC 13.5 H (3.8-10.6) k/uL Neutrophils # 12.2 H (1.3-7.7) k/uL Lymphocytes # 0.7 L (1.0-4.8) k/uL APTT 21.7 L (22.0-30.0) sec Chloride (98-107) mmol/L Carbon Dioxide (22-30) mmol/L Glucose (74-99) mg/dL POC Glucose (mg/dL) (70-110) mg/dL Plasma Lactic Acid Damaso (0.7-2.0) mmol/L Magnesium (1.6-2.3) mg/dL Creatine Kinase (55-170) U/L CK-MB (CK-2) (0.0-3.4) ng/mL Troponin I (0.000-0.034) ng/mL Urine Protein Trace H (Negative) Amorphous Sediment Rare H (None) /hpf Hyaline Casts 5 H (0-2) /lpf 07/24/23 07/24/23 07/24/23 Range/Units 20:23 20:23 20:23 WBC (3.8-10.6) k/uL Neutrophils # (1.3-7.7) k/uL Lymphocytes # (1.0-4.8) k/uL APTT (22.0-30.0) sec Chloride 110 H (98-107) mmol/L Carbon Dioxide 16 L (22-30) mmol/L Glucose 128 H (74-99) mg/dL POC Glucose (mg/dL) (70-110) mg/dL Plasma Lactic Acid Damaso 2.7 H* (0.7-2.0) mmol/L Magnesium (1.6-2.3) mg/dL Creatine Kinase 1245 H* (55-170) U/L CK-MB (CK-2) 17.4 H (0.0-3.4) ng/mL Troponin I 0.178 H* (0.000-0.034) ng/mL Urine Protein (Negative) Amorphous Sediment (None) /hpf Hyaline Casts (0-2) /lpf 07/24/23 07/24/23 07/25/23 Range/Units 20:29 23:10 00:35 WBC (3.8-10.6) k/uL Neutrophils # (1.3-7.7) k/uL Lymphocytes # (1.0-4.8) k/uL APTT (22.0-30.0) sec Chloride 112 H (98-107) mmol/L Carbon Dioxide 17 L (22-30) mmol/L Glucose 115 H (74-99) mg/dL POC Glucose (mg/dL) 135 H (70-110) mg/dL Plasma Lactic Acid Damaso (0.7-2.0) mmol/L Magnesium 2.5 H (1.6-2.3) mg/dL Creatine Kinase 2243 H* (55-170) U/L CK-MB (CK-2) (0.0-3.4) ng/mL Troponin I 0.179 H* (0.000-0.034) ng/mL Urine Protein (Negative) Amorphous Sediment (None) /hpf Hyaline Casts (0-2) /lpf 07/25/23 07/25/23 Range/Units 02:54 02:54 WBC (3.8-10.6) k/uL Neutrophils # (1.3-7.7) k/uL Lymphocytes # (1.0-4.8) k/uL APTT (22.0-30.0) sec Chloride (98-107) mmol/L Carbon Dioxide (22-30) mmol/L Glucose (74-99) mg/dL POC Glucose (mg/dL) (70-110) mg/dL Plasma Lactic Acid Damaso (0.7-2.0) mmol/L Magnesium (1.6-2.3) mg/dL Creatine Kinase 4328 H* (55-170) U/L CK-MB (CK-2) (0.0-3.4) ng/mL Troponin I 0.148 H* (0.000-0.034) ng/mL Urine Protein (Negative) Amorphous Sediment (None) /hpf Hyaline Casts (0-2) /lpf
[2023-07-25 20:34] LABS: Glucose,Whole Blood 191 mg/dL (70-110)
[2023-07-26] MEDS: CEFEPIME 2 GM in SODIUM CHLORIDE 0.9% 100 ML IVPB SCH ×3 (00:31→16:18)
[2023-07-26] MEDS: SODIUM CHLORIDE 0.9% 1,000 ML IV SCH ×3 (04:01→16:20)
[2023-07-26] MEDS: VANCOMYCIN 1,750 MG in SODIUM CHLORIDE 0.9% 500 ML 500 ML IVPB SCH (04:01)
[2023-07-26 08:04] VITALS: TEMP 97
[2023-07-26] MEDS: ENOXAPARIN 40 MG/0.4 ML SYRINGE SQ SCH (08:05)
[2023-07-26 08:59] LABS: HCT 37.9 % (39.0-53.0); HGB 12.5 gm/dL (13.0-17.5); MCH 32.8 pg (25.0-35.0); MCHC 33.1 g/dL (31.0-37.0); MCV 99.3 fL (80.0-100.0); Mean Platelet Volume 8.9; Platelet Count 128 k/uL (150-450); RBC 3.82 m/uL (4.30-5.90); RDW 13.5 % (11.5-15.5); WBC 8.1 k/uL (3.8-10.6)
[2023-07-26] MEDS ORDERED: ASPIRIN 81 MG PO SCH (09:00)
[2023-07-26] MEDS ORDERED: NICOTINE 21MG/24HR PATCH TRANSDERM SCH (09:00)
[2023-07-26 09:08] LABS: ALT 60 U/L (4-49); AST 176 U/L (17-59); African American GFR (CKD) >90 (>60 ml/min/1.73 sqM); Albumin 3.6 g/dL (3.5-5.0); Alkaline Phosphatase 47 U/L (38-126); Anion Gap 8 mmol/L; Blood Urea Nitrogen 16 mg/dL (9-20); Calcium 8.4 mg/dL (8.4-10.2); Carbon Dioxide 22 mmol/L (22-30); Chloride 113 mmol/L (98-107); Glucose 112 mg/dL (74-99); Magnesium 2.2 mg/dL (1.6-2.3); Non-African American GFR(CKD) 89 (>60 ml/min/1.73 sqM); Sodium 143 mmol/L (137-145); Total Bilirubin 0.9 mg/dL (0.2-1.3); Total Protein 6.4 g/dL (6.3-8.2)
--- NOTE | 2023-07-26 09:14 | CA ---
Transthoracic Echo Report Name: Ger Ortiz Age: 77 Gender: M : 1945 Exam Date: 07/25/2023 15:05 Exam Location: [place] [facility] Ht (in): 70 Wt (lb): 200 Ordering Physician: Brenda Caruso Attending/Referring Phys: [id number], [employer] Hand Desmond Hutson Procedure CPT: Indications: LVF Cardiac Hx: Technical Quality: Fair Contrast 1: Total Dose (mL): Contrast 2: Total Dose (mL): MEASUREMENTS (Male / Female) Normal Values 2D ECHO LV Diastolic Diameter PLAX 5.6 cm 4.2 - 5.9 / 3.9 - 5.3 cm LV Systolic Diameter PLAX 4.2 cm IVS Diastolic Thickness 1.3 cm 0.6 - 1.0 / 0.6 - 0.9 cm LVPW Diastolic Thickness 1.6 cm 0.6 - 1.0 / 0.6 - 0.9 cm LV Relative Wall Thickness 0.5 RV Internal Dim ED PLAX 4.1 cm LVOT Diameter 2.3 cm Aortic Root Diameter 3.8 cm LA Systolic Diameter LX 3.2 cm 3.0 - 4.0 / 2.7 - 3.8 cm LV Diastolic Volume MOD BP 73.0 cm??? 67 - 155 / 56 - 104 cm??? LV Systolic Volume MOD BP 24.6 cm??? - 58 / 19 - 49 cm??? LV Ejection Fraction MOD BP 66.3 % >= 55 % LV Cardiac Index MOD BP 1563.8 cm???/min???m??? LV Diastolic Volume MOD 4C 69.6 cm??? LV Systolic Volume MOD 4C 20.2 cm??? LV Ejection Fraction MOD 4C 71.0 % LV Cardiac Index MOD 4C 1596.7 cm???/min???m??? LV Diastolic Length 4C 7.0 cm LV Systolic Length 4C 6.2 cm LV Diastolic Volume MOD 2C 71.8 cm??? LV Systolic Volume MOD 2C 28.7 cm??? LV Ejection Fraction MOD 2C 60.0 % LV Cardiac Index MOD 2C 1392.4 cm???/min???m??? LV Diastolic Length 2C 7.5 cm LV Systolic Length 2C 6.5 cm LA Volume 68.7 cm??? 18 - 58 / 22 - 52 cm??? LA Volume Index 32.1 cm???/m??? 16 - 28 cm???/m??? DOPPLER AV Peak Velocity 146.5 cm/s AV Peak Gradient 8.6 mmHg LVOT Peak Velocity 101.3 cm/s LVOT Peak Gradient 4.1 mmHg LVOT Velocity Time Integral 18.7 cm LVOT Stroke Volume 74.9 cm??? LVOT Stroke Volume Index 35.9 ml/m??? LVOT Cardiac Index 2419.9 cm???/min???m??? AV Area Cont Eq pk 2.8 cm??? MR Peak Velocity 446.0 cm/s MR Peak Gradient 79.6 mmHg Mitral E Point Velocity 101.1 cm/s Mitral A Point Velocity 87.9 cm/s Mitral E to A Ratio 1.1 MV Deceleration Time 154.6 ms MV E' Velocity 10.0 cm/s Mitral E to MV E' Ratio 10.1 TR Peak Velocity 265.1 cm/s TR Peak Gradient 28.1 mmHg Right Ventricular Systolic Press 33.1 mmHg PV Peak Velocity 121.7 cm/s PV Peak Gradient 5.9 mmHg FINDINGS Left Ventricle Normal LV size and wall thickness. Left ventricular ejection fraction is estimated at 50-55 %. Posterior basal hypokenesis in short axis views. Right Ventricle Upper limits in size. RVSP= 33mmHg. Right Atrium Normal right atrial size. Left Atrium Mildly increased left atrial volume. Mildly increased left atrial area. LA volume index= 33ml/m2 Mitral Valve Structurally normal mitral valve. Mild MR. Aortic Valve Aortic valve not well visualized. No aortic stenosis. No aortic regurgitation. Tricuspid Valve Tricuspid valve not well visualized. Mild to moderate TR. Pulmonic Valve Pulmonic valve not well visualized. Trace PI. Pericardium Grossly normal. Aorta AO root prince= 3.8cm. CONCLUSIONS Normal LV systolic function Borderline dilated aortic root 3.8 cm Previewed by: Dr. Alexandro Bernstein MD (Electronically Signed) Final Date: 26 July 2023 09:13
--- NOTE | 2023-07-26 14:00 | P.PN ---
Subjective Progress Note Date: 07/26/23 elevated trops History of present illness: History of present illness: This is a 77-year-old male with no previous medical history does not follow with PCP. We have been asked to evaluate the patient for elevated troponins. Patient presented to the hospital exam EMS after he was found on the floor. Patient was last seen on Saturday evening around 9:30 or 10 PM and was found yesterday afternoon. Patient does not know if he lost consciousness but when his girlfriend arrived apparently she was able to wake him up. Patient denies having any chest pain, no wheezing no cough, no blood in his urine or stools. He denies any stroke or seizure symptoms. He is normally very active and can do so without shortness of breath. He denies having any fevers. He is a smoker one pack per day. He also has regular daily caffeine intake. He drinks alcohol but not every day. Temperature max was 100.9. Blood pressure 134/63, heart rate in the 70s. Pulse ox 96% on room air. EKG sinus rhythm no acute findings Chest x-ray: Mild cardiomegaly. No acute process CT of the brain and cervical spine revealed no acute intracranial abnormality. Mild generalized brain atrophy and chronic ischemic changes. No evidence of cervical spine fracture or traumatic malalignment. Multilevel cervical spondylosis with mild to moderate canal and neural foraminal stenosis. WBC 13.5, hemoglobin 15.1, platelet count 166. INR 1. Sodium 141, potassium 4.1, chloride 112, CO2 17, creatinine 0.89. Lactic acid 2.7. Magnesium 2.5. CK 1245, 2243, 4328. Troponin 0.178, 0.179, 0.148. Urinalysis negative for infection. Urine drug screen negative. Influenza A, B, RSV, Covid 19 not detected. Home cardiac medications: 07/26 Patient states he slept okay last night. No chest pain, nose dizziness, no palpitations. No edema. Patient has ambulated without symptoms. Echocardiogram reveals normal LV systolic function. Borderline dilated aortic root 3.8 cm. She was seen today on the cardiac stepdown unit. He has been afebrile overnight, heart rate in the 60s, blood pressure 138/83, pulse ox 97% on room air. Repeat blood work reveals hemoglobin of 12.5. Potassium 4, BUN 16 creatinine 0.74. AST 176, ALT 60. Repeat CK not available at the time of this dictation. Lipid panel is pending. Physical examination: Gen: This is a 77-year-old male. He is resting and appears to be in no acute distress. VS: reviewed HEENT: Head is atraumatic, normocephalic. Pupils equal, round. Sclerae is anicteric. NECK: Supple. No JVD. LUNGS: Clear to auscultation. No wheezes or rhonchi. No intercostal retractions. HEART: Regular rate and rhythm. Systolic murmur. ABDOMEN: Soft No tenderness. EXTREMITIES: No pedal edema. No calf tenderness. NEUROLOGICAL: Patient is awake, alert and oriented x3. Assessment: Rhabdomyolysis Elevated troponin possibly type II ND secondary to syncopal episode but ischemic heart disease cannot be ruled out Syncopal episode of unclear etiology Tobacco use and dependence Plan: Continue patient on aspirin 81 mg daily Patient is cleared for discharge from cardiology. Plan for outpatient follow-up regarding elevated troponin and ischemic cardiac workup. Patient may follow up with Dr. Islas in 2 weeks. Nurse practitioner note has been reviewed, I agree with documented findings and plan of care. Patient was seen and examined. Objective - Vital Signs Vital signs: Vital Signs Temp 97.0 F L 07/26/23 08:00 Pulse 69 07/26/23 09:53 Resp 18 07/26/23 09:53 BP 138/83 07/26/23 08:00 Pulse Ox 97 07/26/23 08:30 FiO2 Intake & Output 07/25/23 07/26/23 07/26/23 18:59 06:59 18:59 Intake Total 0 118 Output Total 800 Balance -800 118 Weight 90.718 kg Intake: Oral 0 118 Output: Urine 800 Other: Voiding Method Toilet Toilet Toilet Urinal Urinal Urinal # Voids 1 1 - Labs CBC & Chem 7: 07/26/23 07:44 07/26/23 07:44 Labs: Abnormal Lab Results - Last 24 Hours (Table) 07/25/23 07/26/23 07/26/23 Range/Units 20:32 07:44 07:44 RBC 3.82 L (4.30-5.90) m/uL Hgb 12.5 L (13.0-17.5) gm/dL Hct 37.9 L (39.0-53.0) % Plt Count 128 L (150-450) k/uL Chloride 113 H (98-107) mmol/L Glucose 112 H (74-99) mg/dL POC Glucose (mg/dL) 191 H (70-110) mg/dL AST 176 H (17-59) U/L ALT 60 H (4-49) U/L
[2023-07-26 16:04] LABS: Chol/HDL Ratio 4.91 Ratio; LDL Cholesterol,Calculated 94.8 mg/dL (0.0-131.0)
[2023-07-26 16:35] VITALS: BP 152/76; PULSE 62
--- NOTE | 2023-07-26 16:50 | P.DS ---
Providers Date of admission: 07/24/23 23:48 Expected date of discharge: 07/26/23 Attending physician: Rolly Byrnes MD Consults: 07/25/23 02:20 Consult Physician Urgent Consulting Provider: Alexandro Bernstein Consult Reason/Comments: elevated trop Do you want consulting provider notified?: Yes Primary care physician: Stated None Hospital Course: Discharge Diagnosis: Rhabdomyolysis, suspect secondary to prolonged immobilization and dehydration.. Suspect underlying alcohol use/abuse. 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 Liver enzymes slightly elevating on day two often seen with alcohol abuse/binge drinking behaviors and pt is very anxious for discharge. Patient received IV fluid rehydration. He is free from any complaints at this time. Patient and his daughter at bedside very adamant about being discharged today. High anion gap metabolic acidosis. Elevated troponins, likely type II NSTEMI resulting from acute rhabdomyolysis. SIRS of unclear etiology, no obvious signs/symptoms of infection noted. Patient denies any complaints. Elevated temp and so is likely secondary to acute rhabd omyolysis. Suspect secondary to underlying alcohol use/abuse and prolonged immobilization after fall. Nicotine dependence. Recommended smoking cessation. Lactic acidosis, resolved. Hospital Course: Patient is a very pleasant 77-year-old male with a past medical history of cataracts is post cataract surgery and nicotine dependence. He presented to the emergency department on 07/24/23 after reportedly being found down on the ground confused in his home. Per documentation in chart patient's last known normal was 07/23/23 around 2 PM. Patient underwent full evaluation in the emergency department. Labs upon arrival show blood pressure 144/77, heart rate 80, respiratory rate 18, temp 100.9F, SpO2 of 95% on room air. CT head and cervical spine was completed CT head was negative for acute intracranial abnormality showing mild generalized brain atrophy and chronic microvascular ischemic changes. CT cervical spine negative showing no evidence of cervical spine fracture or traumatic malalignment with multilevel cervical spondylosis with mild to moderate canal and neural foraminal stenosis C4 through C5 and C6 through C7. EKG completed showing normal sinus rhythm 80 bpm with a right bundle branch block. Chest x-ray revealing mild cardiomegaly negative for acute cardiopulmonary process. Labs completed and reviewed. CBC showing leukocytosis with WBC count of 13.5. Coagulation profile normal findings. BMP revealing hyperchloremia with chloride of 112 and hypocarbia with bicarb of 16 with elevated anion gap of 16. Renal function normal findings with BUN 17, creatinine 0.89, and GFR of 83. Blood glucose 115. Lactic acid elevated at 2.7. Creatinine kinase elevated at 2243. Liver profile normal findings. Troponin elevated at 0.178. Urinalysis showing trace protein and negative for blood or infection. Urine drug screen negative. Influenza A, influenza B, RSV, and Covid PCR all negative. Patient was provided with 1 L 0.9% normal saline bolus in the emergency department and started on IV maintenance and fluids with 0.9% normal saline at 150 mL per hour and admitted under services with consultation to cardiology for elevated troponins. Repeat creatinine kinase elevating to 4328 and troponins were trended overnight resulting in 0.178, 0.179, 0.148. Patient received aggressive IV fluid hydration. He is alert and oriented to person, place, time, and situation. Suspect rhabdomyolysis is secondary to underlying alcohol use/abuse and prolonged downtime from fall. 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 Liver enzymes slightly elevating on day two often seen with alcohol abuse/binge drinking behaviors with AST 176 and ALT of 60. P t is very jittery and anxious for discharge. Patient received IV fluid rehydration. He is free from any complaints at this time. Cardiology evaluated, patient declining any further workup at this time. Cardiology clearing patient from cardiac perspective recommending outpatient follow-up in their office in one week. Patient and his daughter at bedside very adamant about being discharged today. Patient being discharged at this time. Strongly encouraged cessation and avoidance of any and all alcohol use. Patient discharged home on aspirin 81 mg daily. Patient to follow up outpatient with primary care provider and medication manager. Physical exam: Vital signs reviewed and stable. General: Nontoxic, no distress and appears stated age. Derm: Skin warm and dry, normal coloration for ethnicity. Head: Atraumatic, normocephalic and symmetric. Eyes: EOMs intact, no lid lag, and anicteric sclera Mouth: no lip lesions, mucus membranes moist Cardiovascular: regular rate and rhythm with normal S1S2, systolic murmur, positive posterior tibial pulses bilaterally, and cap refill < 2 seconds. Lungs: Respirations even, regular, and unlabored on room air. Lungs CTA bilaterally, no rhonchi, no rales, no wheezing, and no accessory muscle usage. Abdominal: soft, nontender to palpation, no guarding, no appreciable organomegaly Ext: ROM intact. No gross muscle atrophy, no edema, no contractures Neuro: Speech clear, face symmetrical and CN II-XII grossly intact with no noted focal neuro deficits Psych: Alert and oriented to person, place, time, and situation. Appropriate and pleasant affect. A total of 36 minutes of time were spent preparing this complex discharge summary. Pt was discharged on 07/26/23 at 4:34 PM. Patient was seen independently by Nurse Practitioner. This document was prepared using [employer] dictation software. Please allow for errors in crop specialist while rare they do occur. Isauro Craig NP rendered care for this patient independently, reviewed the findings and plan as documented in the note above. I did not physically speak with or examine the patient on this date. Patient Condition at Discharge: Stable Plan - Discharge Summary Discharge Rx Participant: No New Discharge Prescriptions: New Aspirin 81 mg PO DAILY 30 Days #30 tab Discharge Medication List Aspirin 81 mg PO DAILY 30 Days #30 tab 07/26/23 [Rx] Follow up Appointment(s)/Referral(s): Alisa Islas MD [STAFF PHYSICIAN] - 1 Week (please call and make appointment ) Arnoldo Peace MD [STAFF PHYSICIAN] - 1 Week (please call and make appointment ) Patient Instructions/Handouts: How to Stop Smoking (DC), Rhabdomyolysis (DC) Activity/Diet/Wound Care/Special Instructions: Activity: As tolerated. Take breaks as needed. Diet: Heart healthy and carb consistent diet. Avoid salts, or foods with hidden salts such as canned or boxed foods and frozen dinners. Extra salt makes your heart work harder and traps the fluid in your body for longer. Special Instructions: You are being discharged home as requested by both you and your daughter, highly recommend outpatient follow-up with medication manager for further evaluation and work-up of elevated troponins. Recommend avoiding any and all alcohol use. Thank you for allowing us to participate in your care, it was truly a pleasure having you for our patient!!! Discharge Disposition: HOME SELF-CARE
[2023-07-26] MEDS ORDERED: VANCOMYCIN 1,750 MG in SODIUM CHLORIDE 0.9% 500 ML 500 ML IVPB SCH (18:00)
[2023-07-27] MEDS ORDERED: VANCOMYCIN TROUGH DUE 1 EACH MISC MISCELLANE ONE (05:00)
== END 2023-07-26 17:47 | disposition home or self-care (01) | DRG 557 ==
LOC: EC 19:49 → 3SCARD 23:04 → OBSVTOIN 23:48 → 3SCARD 07-25 06:49
PROVIDERS: ADMIT Internal Medicine; ATTEND Internal Medicine
DX: M62.82 Rhabdomyolysis (principal); G93.41 Metabolic encephalopathy; I21.A1 Myocardial infarction type 2; E87.20 Acidosis, unspecified; R65.10 Systemic inflammatory response syndrome (SIRS) of non-infectious origin without acute organ dysfunction; E87.8 Other disorders of electrolyte and fluid balance, not elsewhere classified; Z20.822 Contact with and (suspected) exposure to COVID-19; G31.9 Degenerative disease of nervous system, unspecified; F17.210 Nicotine dependence, cigarettes, uncomplicated; R55 Syncope and collapse; I45.10 Unspecified right bundle-branch block; M47.812 Spondylosis without myelopathy or radiculopathy, cervical region; I77.810 Thoracic aortic ectasia; M48.02 Spinal stenosis, cervical region; I08.0 Rheumatic disorders of both mitral and aortic valves; Z98.42 Cataract extraction status, left eye; W19.XXXA Unspecified fall, initial encounter; Z98.41 Cataract extraction status, right eye
CPT/HCPCS: 36415; 70450; 71046; 72125; 80048; 80053; 80061; 80306; 81001; 82550; 82553; 83605; 83735; 84484; 85025; 85027; 85610; 85730; 87040; 87636; 93005; 93306; 94760; 96361; 96365; 96366; 96368; 96372; 99285

== ENCOUNTER → 2024-03-12 | Outpatient (CLI) | payer MEDICARE ==
--- NOTE | 2024-03-12 07:51 | US ---
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 Indirect Doppler criteria was utilized. FINDINGS: EXAM MEASUREMENTS: RIGHT: Peak Systolic Velocity (PSV) cm/sec ----- Right CCA: 59.2 ----- Right ICA: 67.2 ----- Right ECA: 87.4 ICA/CCA ratio: 1.1 RIGHT: End Diastole cm/sec ----- Right CCA: 9.6 ----- Right ICA: 16.4 ----- Right ECA: 11.7 LEFT: Peak Systolic Velocity (PSV) cm/sec ----- Left CCA: 51.3 ----- Left ICA: 129.0 ----- Left ECA: 107.0 ICA/CCA ratio: 2.5 LEFT: End Diastole cm/sec ----- Left CCA: 12.5 ----- Left ICA: 29.3 ----- Left ECA: 9.7 VERTEBRALS (direction of flow): Right Vertebral: Antegrade Left Vertebral: Antegrade Rhythm: Normal PHOTO PRODUCER NOTES: Heterogeneous plaque noted on the left with increased velocities noted at distal l eft ICA IMPRESSION: 50-69% stenosis suggested of the left ICA. No stenosis suggested of the right ICA. Criteria for Assigning % of Stenosis / Diameter reduction (Estimation based on the indirect measurements of the internal carotid artery velocities (ICA PSV). 1. Normal (no stenosis)=ICA PSV < 125 cm/s: ratio < 2.0: ICA EDV<40 cm/s. 2. Less than 50% stenosis=ICA PSV < 125 cm/s: ratio < 2.0: ICA EDV<40 cm/s. 3. 50 to 69% stenosis=ICA PSV of 125 to 230 cm/s: ration 2.0 ? 4.0: ICA EDV 40-100 cm/s. 4. Greater than 70% stenosis to near occlusion= ICA PSV > 230 cm/s: ratio > 4.0: ICA EDV > 100 cm/s. 5. Near occlusion= ICA PSV velocities may be low or undetectable: variable ratio and ICA EDV. 6. Total occlusion=unable to detect flow.
--- NOTE | 2024-03-12 17:03 | US ---
EXAMINATION TYPE: US arterial LE single level DATE OF EXAM: 03/12/2024 7:42 AM CLINICAL INDICATION: Male, 78 years old with history of I73.9 PERIPHERAL VASCULAR DISEASE H53.9 UNSPE CIFIE; PAd, patient states no issues, "doctor" just wants to check History of: Smoker: n Hypertension: n Diabetic: n Hyperlipidemia: n TIA/CVA: n Previous Vascular Surgery: n CAD: n HI: n Vascular Ulcers: n Claudication: n Gangrene: n Doppler Waveforms: Right: Multiphasic Left: Multiphasic Right Brachial Pressure: 144 Left Brachial Pressure: 156 Ankle-Brachial Indices: Right: 1.1 Left: 1.1 (Vessel hardening > 1.4; Normal 0.9 - 1.4, Moderate 0.7 - 0.9, Severe 0.5-0.7) IMPRESSION: Ankle-brachial brachial indices are within normal limits bilaterally.
== END | disposition home or self-care (01) ==
LOC: RADUSWWP 06:47
PROVIDERS: ATTEND Family Medicine
DX: I25.10 Atherosclerotic heart disease of native coronary artery without angina pectoris (principal); I73.9 Peripheral vascular disease, unspecified; H53.9 Unspecified visual disturbance; E11.51 Type 2 diabetes mellitus with diabetic peripheral angiopathy without gangrene; E78.5 Hyperlipidemia, unspecified; I10 Essential (primary) hypertension
CPT/HCPCS: 93880; 93922